=== PATIENT | male | born 1940 | race Caucasian/White ===

== ENCOUNTER 2021-02-25 20:32 | Emergency (ER) | payer MEDICARE ==
[2021-02-25 21:20] LABS: #Basophils 0.1 thou/uL (0.0-0.2); #Eosinphils 0.4 thou/uL (0.0-0.7); #Lymphocytes 2.6 thou/uL (1.20-3.40); #Monocytes 0.5 thou/uL (0.11-0.59); #Neutrophils 3.9 thou/uL (1.40-6.50); %Basophils 1.1 % (0.0-1.0); %Eosinophils 5.1 % (0.0-10.0); %Lymphocytes 34.4 % (21.0-51.0); %Monocytes 7.3 % (0.0-10.0); %Neutrophils 52.2 % (42.0-75.0); Hemoglobin 16.8 g/dL (14.0-18.0); Mean Corpuscular Hemoglobin 30.5 pg (27.0-31.0); Mean Corpuscular Volume 98.3 fL (78.0-98.0); Mean Platelet Volume 8.7 fL (7.4-10.4); Platelet Count 158 thou/uL (130-400); RBC Distribution Width 12.2 % (11.5-14.5); Red Blood Cell (RBC) Count 5.51 mill/uL (4.70-6.10); White Blood Cell (WBC) Count 7.5 thou/uL (4.8-10.8)
[2021-02-25 21:42] LABS: ALT (SGPT) 33 U/L (8-55); AST (SGOT) 30 U/L (5-34); Albumin 3.8 g/dL (3.4-4.8); Alkaline Phosphatase 82 U/L (40-110); Anion Gap 15 mmol/L (10-20); BUN (Urea Nitrogen) 14 mg/dL (8.4-25.7); Bilirubin, Total 0.7 mg/dL (0.2-1.2); Calc. Creatinine Clearance 0 mL/min (70-130); Carbon Dioxide 24 mmol/L (23-31); Chloride 103 mmol/L (98-107); Globulin 3.1 g/dL (2.4-3.5); Glucose 102 mg/dL (83-110); Potassium 3.8 mmol/L (3.5-5.1); Protein, Total 6.9 g/dL (5.8-8.1); Sodium 138 mmol/L (136-145)
[2021-02-25 21:43] LABS: CK (CPK) 85 U/L (30-200); CKMB 4.1 ng/mL (0-6.6); CRP (Inflammatory) Less than 0.50 mg/dL (= or < 0.5)
== END 2021-02-25 22:36 | disposition home or self-care (01) ==
LOC: MADERS 20:32
DX: R63.4 Abnormal weight loss (principal); R53.1 Weakness; K44.9 Diaphragmatic hernia without obstruction or gangrene; R16.1 Splenomegaly, not elsewhere classified; J43.9 Emphysema, unspecified; D75.1 Secondary polycythemia
CPT/HCPCS: 36415; 71045; 80053; 82550; 82553; 84443; 84484; 85025; 86140; 93005

== ENCOUNTER 2022-11-13 11:13 | Emergency (ER) | payer MEDICARE ==
[2022-11-13 11:49] LABS: Hemoglobin 16.5 g/dL (14.0-18.0)
[2022-11-13 14:04] LABS: Hemoglobin 16.2 g/dL (14.0-18.0)
== END 2022-11-13 14:15 | disposition home or self-care (01) ==
LOC: MADERS 11:13
DX: D45 Polycythemia vera (principal); L98.9 Disorder of the skin and subcutaneous tissue, unspecified
CPT/HCPCS: 36415; 85014; 85018; 99195; 99283

== ENCOUNTER 2025-07-09 04:42 | Emergency (ER) | payer MEDICARE, OTHER ==
[2025-07-09 06:01] LABS: Glucose, Urine (Dipstick) Negative (Negative); Leukocyte Large (Negative); Protein, Urine (Dipstick) > or equal to 300 mg/dL (Neg-Trace); Specific Gravity, Urine 1.025 (1.005-1.030)
[2025-07-09 06:07] LABS: CAUTI Indications for Culture Pelvic or flank pain; WBC/HPF Greater than 50 HPF (0-3)
[2025-07-09 06:08] LABS: Bacteria/HPF 3+ HPF (None Seen); Urine Culture Reflex Yes Yes
[2025-07-09] MEDS ORDERED: cefTRIAXone (ROCEPHIN) 1 GM VIAL ONE (06:50)
== END 2025-07-09 06:55 | disposition home or self-care (01) ==
LOC: MADERS 04:42
DX: T83.091A Other mechanical complication of indwelling urethral catheter, initial encounter (principal); N39.0 Urinary tract infection, site not specified
CPT/HCPCS: 51798; 81001; 87077; 87086; 87186; 96372; 99284; J0696

== ENCOUNTER 2025-07-25 16:25 | Emergency (ER) | payer MEDICARE ==
[2025-07-25 16:54] LABS: Glucose, Urine (Dipstick) Negative (Negative); Leukocyte Small (Negative); Protein, Urine (Dipstick) 100 mg/dL (Neg-Trace); Specific Gravity, Urine 1.025 (1.005-1.030)
[2025-07-25 17:00] LABS: RBC/HPF Greater than 50 HPF (0-3)
[2025-07-25 17:01] LABS: Bacteria/HPF 2+ HPF (None Seen); CAUTI Indications for Culture Acute Hematuria; WBC/HPF Greater Than 50 HPF (0-3)
[2025-07-25 17:02] LABS: Urine Culture Reflex Yes Yes
== END 2025-07-25 17:55 | disposition home or self-care (01) ==
LOC: MADERS 16:25
DX: T83.038A Leakage of other urinary catheter, initial encounter (principal); N39.0 Urinary tract infection, site not specified; Z87.891 Personal history of nicotine dependence
CPT/HCPCS: 81001; 87077; 87086; 87186; 99283

== ENCOUNTER 2025-09-07 07:36 | Emergency (ER) | payer MEDICARE | END 2025-09-07 08:30 | disposition home or self-care (01) | LOC: MADERS 07:36 | DX: T83.098A Other mechanical complication of other urinary catheter, initial encounter (principal); R29.810 Facial weakness; F17.210 Nicotine dependence, cigarettes, uncomplicated | CPT/HCPCS: 51702; 99283 ==

== ENCOUNTER 2025-09-16 05:47 | Emergency (ER) | payer MEDICARE ==
[2025-09-16 06:29] LABS: Glucose, Urine (Dipstick) Negative (Negative); Leukocyte Moderate (Negative); Protein, Urine (Dipstick) 100 mg/dL (Neg-Trace); Specific Gravity, Urine 1.015 (1.005-1.030)
[2025-09-16 06:30] LABS: Bacteria/HPF 3+ HPF (None Seen); CAUTI Indications for Culture Dysuria,urgency,freq; RBC/HPF 0-3 HPF (0-3); WBC/HPF Greater than 50 HPF (0-3)
[2025-09-16 06:31] LABS: Urine Culture Reflex Yes Yes
[2025-09-16] MEDS ORDERED: Cephalexin 500 MG CAP ONE (06:49)
== END 2025-09-16 06:53 | disposition home or self-care (01) ==
LOC: MADERS 05:47
DX: T83.091A Other mechanical complication of indwelling urethral catheter, initial encounter (principal); N39.0 Urinary tract infection, site not specified; Z87.891 Personal history of nicotine dependence
CPT/HCPCS: 51702; 81001; 87077; 87086; 87186